=== PATIENT | female | born 1940 | race Caucasian/White ===

== ENCOUNTER → 2023-09-02 | Outpatient (REF) | payer MEDICARE ==
[~2023-09-02] MED LIST: ASPIRIN LOW DOS81 MG PO; LISINOPRIL-HCT1 EAC4 PO; Z.0.PRAVASTATIN SOD4 PO
== END ==
LOC: DX 13:08
PROVIDERS: ATTEND Internal Medicine
DX: Z13.820 Encounter for screening for osteoporosis (principal)
CPT/HCPCS: 77080